=== PATIENT | male | born 2000 | race Caucasian/White ===

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

== ENCOUNTER 2020-08-10 00:56 | Emergency (ER) | payer OTHER ==
[~2020-08-10] VITALS: Ht 185.4 cm; Wt 79.4 kg
[~2020-08-10 00:56] MED LIST: IBU800 MG PO
[2020-08-10] MEDS ORDERED: DICLOFENAC SODI75 MG PO (01:32)
[2020-08-10] MEDS ORDERED: CRUTCH1 EACH MISC (01:35)
== END 2020-08-10 01:51 | disposition home or self-care (01) ==
LOC: ED 00:56
DX: S93.402A Sprain of unspecified ligament of left ankle, initial encounter (principal); M77.9 Enthesopathy, unspecified; X50.9XXA Other and unspecified overexertion or strenuous movements or postures, initial encounter; Y99.0 Civilian activity done for income or pay
CPT/HCPCS: 73610; 99283-25

== ENCOUNTER 2025-06-16 20:18 | Emergency (ER) | payer BC ==
[~2025-06-16] VITALS: Ht 185.4 cm; Wt 114.8 kg
[~2025-06-16 20:18] MED LIST changes: +CRUTCH1 EACH MISC; +DICLOFENAC SODI75 MG PO
[2025-06-16] MEDS ORDERED: TETRACAINE HCL 0.5% 4 ML BTL OS ONE (20:45)
[2025-06-16] MEDS ORDERED: NEOMYCIN/POLYMYXIN/DEXAMETH OPTH SUSPENSION BOTTLE OS ONE (21:00)
[2025-06-16] MEDS ORDERED: MAXITROL EYE DRO5 ML OPTH (21:21)
[2025-06-16 21:28] VITALS: BP 137/81
== END 2025-06-16 21:28 | disposition home or self-care (01) ==
LOC: ED 20:18
DX: S05.02XA Injury of conjunctiva and corneal abrasion without foreign body, left eye, initial encounter (principal); X58.XXXA Exposure to other specified factors, initial encounter
CPT/HCPCS: 99283